=== PATIENT | male | born 1940 | race Caucasian/White ===

== ENCOUNTER 2016-06-09 21:31 | Emergency (ER) | payer MEDICARE, BC ==
[~2016-06-09 21:31] MED LIST: ALDACTONE25 MG PO; ARICEPT DPS5 MG OP; ASA CHILDREN'S81 MG PO; ASPIRIN EC81 MG PO; COLACE100 MG PO; COZAAR DPS50 MG PO; CYMBALTA30 MG PO; DESYREL-DPS50 MG PO; DOLOPHINE5 MG PO; ELIQUIS2.5 MG PO; KLOR-CON20 MEQ PO; LANSOPRAZOLE30 MG PO; MAGNESIUM250 M1 PO; MELATONIN5 MG PO; METHADONE HCL5 MG PO; MIRALAX DPS17 GM PO; NEURONTIN DPS100 MG PO; NITROSTAT0.4 MG SL; NORVASC5 MG PO; VITAMIN B-12500 MCG PO; VITAMIN B6100 MG PO; VITAMIN D2000 UNIT PO
--- NOTE | 2016-06-13 11:06 | ER ---
ADMIT: 06/09/2016 RM/LOC: ER [facility] MR#: [id number] [id number] [place], [place] [id number] LIA FARRAR [address] [place] [address] Emergency Room Report SEX: M AGE: 76 : 1940 DATE: 06/09/2016 CHIEF COMPLAINT: Left foot pain. HISTORY OF PRESENT ILLNESS: This is a pleasant 76-year-old male, who presents following some acute onset of pain about 6 hours ago, when he was walking down the street. Denies any specific injury, denies any fall, just a direct blow to the foot. He primarily describes the pain along the lateral aspect of his left foot. 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 Denies any popping sensation, does have some pain with movement, rates the pain as severe. COURSE IN THE EMERGENCY ROOM: The patient was seen and examined, has tenderness to the base of the 5th. X-ray was reviewed and negative for acute fracture. IMPRESSION: Left foot strain, likely at the insertion of the peroneal muscle. DISPOSITION: The patient was discharged with activity as tolerated. Continue all of his home medications, Tylenol or Motrin as needed for pain. He is to rest, ice, compress, and elevate the foot as needed for pain control. Follow up with Ke as needed. Questions are sought and answered to the best of ability and to the patient's satisfaction, discharged in stable condition. YENNI Manning / Bruno Good MD / ubaldol JOB #: [id number] CC: Bruno Good MD, Attending Physician Wilver Dempsey MD, Family Physician
== END 2016-06-09 22:30 | disposition home or self-care (01) ==
LOC: ER 21:31
DX: S96.912A Strain of unspecified muscle and tendon at ankle and foot level, left foot, initial encounter (principal); M81.0 Age-related osteoporosis without current pathological fracture; X58.XXXA Exposure to other specified factors, initial encounter

== ENCOUNTER 2016-10-27 17:07 | Emergency (ER) | payer MEDICARE, BC ==
--- NOTE | 2016-10-30 12:08 | ER ---
ADMIT: 10/27/2016 RM/LOC: ER [facility] MR#: [id number] [id number] [place], [place] [address] LIA FARRAR [address] [place] [address] Emergency Room Report SEX: M AGE: 76 : 1940 DATE: 10/27/2016 HISTORY OF PRESENT ILLNESS: The patient is a 76-year-old male presents to the emergency room with pain in his lower extremities. The right leg is much swollen than the left. He does have brownish skin color. He has a history of chronic back pain and stents and is allergic to Zoloft. MEDICATIONS: Include: 1. Donepezil. 2. Duloxetine. 3. Apixaban. 4. Amlodipine. 5. Methadone. 6. Gabapentin. 7. Trazodone. 8. Vitamin D. 9. Vitamin B6. 10.Vitamin B12. 11.Potassium chloride. 12.Magnesium. 13.Aspirin. 14.Stool softener. 15.He takes Prolia injection every 6 months. PHYSICAL EXAMINATION: VITAL SIGNS: Blood pressure 115/78 with a heart rate of 70, respirations 16, and O2 sats 93%. GENERAL: Moderately anxious. SKIN: Warm, erythema, brownish coloration in the lower extremities with mild lymphangitis. HEENT: Normal inspection. Rest of physical examination within normal limits. We did do a Doppler ultrasound of the bilateral legs, and radiology discussed it with me, negative for DVTs or arterial clot. CLINICAL IMPRESSION: Bilateral cellulitis due to peripheral vascular disease. Prescribed Bactrim. Encouraged to lubricate the legs with lotion, wear compression stockings, keep legs elevated, support with a good cane. Follow up with Dr. Clark. He has an appointment on the 31 of October. YENNI Clement / Oren Pacheco MD / marek JOB #: [id number] CC: Oren Pacheco MD, Attending Physician
== END 2016-10-27 19:20 | disposition home or self-care (01) ==
LOC: ER 17:07
DX: L03.116 Cellulitis of left lower limb (principal); L03.115 Cellulitis of right lower limb; I73.9 Peripheral vascular disease, unspecified; Z79.82 Long term (current) use of aspirin; Z79.899 Other long term (current) drug therapy; Z95.5 Presence of coronary angioplasty implant and graft; Z88.8 Allergy status to other drugs, medicaments and biological substances